=== PATIENT | male | born 1970 | race Caucasian/White ===

== ENCOUNTER → 2024-06-29 06:30 | Outpatient (REF) | payer BC, SELFPAY | LOC: RAD 06:30 | PROVIDERS: ATTENDING PHYSICIAN Physician Assistant; FAMILY PHYSICIAN Family Medicine | DX: I10 Essential (primary) hypertension (principal); E78.00 Pure hypercholesterolemia, unspecified; R73.9 Hyperglycemia, unspecified; R51.9 Headache, unspecified | CPT/HCPCS: 93880 ==